=== PATIENT | male | born 1960 | race African-American/Black ===

== ENCOUNTER 2018-12-20 10:06 | Inpatient (IN) | payer OTHER ==
[2018-12-20 10:46] VITALS: BMI 24.7
--- NOTE | 2018-12-20 11:54 | HP ---
CIWA Score Nausea/Vomitin Muscle Tremors: 2 Anxiety: 2 Agitation: 2 Paroxysmal Sweats: 1-Minimal Palms Moist Orientation: 0-Oriented Tacttile Disturbances: 1-Very Mild Itch/Numbness Auditory Disturbances: 1-Very Mild Visual Disturbances: 0-None Headache: 2-Mild CIWA-Ar Total Score: 13 - Admission Criteria [facility]ASAS Guidelines: Admission for Medically Managed Detox: Requires at least one of the followin. CIWA greater than 12 2. Seizures within the past 24 hours 3. Delirium tremens within the past 24 hours 4. Hallucinations within the past 24 hours 5. Acute intervention needed for co occurring medical disorder 6. Acute intervention needed for co occurring psychiatric disorder 7. Severe withdrawal that cannot be handled at a lower level of care (continued vomiting, continued diarrhea, abnormal vital signs) requiring intravenous medication and/or fluids 8. Admission ROS BHS - HPI Chief Complaint: i need help to stop drinking alcohol,cocaine Allergies/Adverse Reactions: Allergies Allergy/AdvReac Type Severity Reaction Status Date / Time No Known Allergies Allergy Verified 12/20/18 10:40 History of Present Illness: this 58 years old male with alcohol ND COCAINE DEPENDENCE,SEEKING DETOX, WITHDRAWAL SYMPTOM, syncope alcohol related multiple admissions in detox,last detox [facility] 11/22 no seizure in the past nicotine dependence 5 cigarette/day,do not want nicotine replacement asthma on albuterol inhaler no significant period of sobreity plan for rehab after detox Exam Limitations: No Limitations - Ebola screening Have you traveled outside of the country in the last 21 days: No (N) Have you had contact with anyone from an Ebola affected area: No Do you have a fever: No - Review of Systems Constitutional: Loss of Appetite, Malaise, Night Sweats, Changes in sleep, Weakness EENT: reports: Nose Congestion Respiratory: reports: No Symptoms reported, Other (asthma) Cardiac: reports: No Symptoms Reported GI: reports: Diarrhea, Nausea, Vomiting, Abdominal cramping : reports: No Symptoms Reported Musculoskeletal: reports: Back Pain, Muscle Pain Integumentary: reports: Dryness Neuro: reports: Headache, Tremors Endocrine: reports: No Symptoms Reported Hematology: reports: No Symptoms Reported Psychiatric: reports: No Sypmtoms Reported, Judgement Intact, Mood/Affect Appropiate, Orientated x3 Patient History - Patient Medical History Hx Anemia: No Hx Asthma: No Hx Chronic Obstructive Pulmonary Disease (COPD): No Hx Cancer: No Hx Cardiac Disorders: No Hx Congestive Heart Failure: No Hx Hypertension: No Hx Hypercholesterolemia: No Hx Pacemaker: No HX Cerebrovascular Accident: No Hx Seizures: No Hx Dementia: No Hx Diabetes: No Hx Gastrointestinal Disorders: No Hx Liver Disease: No Hx Genitourinary Disorders: No Hx Sexually Transmitted Disorders: No Hx Renal Disease (ESRD): No Hx Thyroid Disease: No Hx Human Immunodeficiency Virus (HIV): No (2017 last negative) Hx Hepatitis C: No Hx Depression: No Hx Suicide Attempt: No Hx Bipolar Disorder: No Hx Schizophrenia: No Other Medical History: no suicidal,no homicidal - Patient Surgical History Past Surgical History: Yes Other Surgical History: deviated nasal septum in 1989 - PPD History Previous Implant?: Yes Documented Results: Positive w/o proof PPD to be Administered?: No - Smoking Cessation Smoking history: Current every day smoker Have you smoked in the past 12 months: Yes Hx Chewing Tobacco Use: No Initiated information on smoking cessation: Yes 'Breaking Loose' booklet given: 12/20/18 - Substance & Tx. History Hx Alcohol Use: Yes Hx Substance Use: Yes Substance Use Type: Alcohol, Cocaine Hx Substance Use Treatment: Yes ([facility] 11/22) - Substances abused Alcohol Substance route: Oral Frequency: Daily Amount used: 6pack beer, 1 pints of vodka, 1 pint wine Age of first use: 18 Date of last use: 12/20/18 Crack Substance route: Smoking Frequency: 3-6 times per week Amount used: 5-6 bags Age of first use: 22 Date of last use: 12/18/18 PCP Substance route: Smoking Frequency: 1-2 times per week Amount used: 2 bags Age of first use: 18 Date of last use: 12/17/18 Family Disease History - Family Disease History Family History: Denies Admission Physical Exam BHS - Vital Signs Vital Signs: Vital Signs - 24 hr 12/20/18 10:32 Temperature 97.8 F Pulse Rate 82 Respiratory 17 Rate Blood Pressure 161/100 - Physical General Appearance: Yes: Moderate Distress, Tremorous, Irritable, Sweating, Anxious HEENTM: Yes: Normal ENT Inspection, DAYLIN, Pharynx Normal, Tm's normal, Other ( contact dermatitis of facial area) Respiratory: Yes: Lungs Clear, Normal Breath Sounds, No Respiratory Distress Neck: Yes: Within Normal Limits, Supple, Trachea in good position Breast: Yes: Within Normal Limits Cardiology: Yes: Within Normal Limits, Regular Rhythm, Regular Rate, S1, S2 Abdominal: Yes: Normal Bowel Sounds, Non Tender, Flat, Soft, Organomegaly Genitourinary: Yes: Within Normal Limits Back: Yes: Muscle Spasm Musculoskeletal: Yes: Back pain, Muscle Pain Extremities: Yes: Tremors Neurological: Yes: editor managing newspaper II-XII NML intact, Fully Oriented, Alert, Motor Strength 5/5 Integumentary: Yes: Dry Lymphatic: Yes: Within Normal Limits - Diagnostic (1) Alcohol dependence with uncomplicated withdrawal Status: Acute (2) Cocaine dependence Status: Acute (3) Cannabis dependence Status: Acute (4) Nicotine dependence Status: Acute Qualifiers: Nicotine product type: cigarettes Substance use status: in withdrawal Qualified Code(s): F17.213 - Nicotine dependence, cigarettes, with withdrawal (5) Contact dermatitis Status: Acute (6) Asthma Status: Chronic Qualifiers: Asthma severity: mild Asthma persistence: intermittent Asthma complication type: with status asthmaticus Qualified Code(s): J45.22 - Mild intermittent asthma with status asthmaticus Cleared for Admission S - Detox or Rehab [facility] Level of Care: Medically Managed Detox Regimen/Protocol: Librium Breathalyzer - Breathalyzer Breathalyzer: 0.03 Urine Drug Screen - Test Device Lot number: [id number] Expiration date: 10/03/20 - Control Is test valid?: Yes - Results Drug screen NEGATIVE: No Urine drug screen results: SUKH-Cocaine, BZO-Benzodiazepines Inpatient Rehab Admission - Rehab Decision to Admit Inpatient rehab admission?: No
[2018-12-20] MEDS ORDERED: MAG HYDROX/AL HYDROX/SIMETH 30 ML UNIT-DOSE CUP PO PRN (12:05)
[2018-12-20] MEDS ORDERED: IBUPROFEN 400 MG TABLET (FP) PO PRN (12:05)
[2018-12-20] MEDS ORDERED: MAGNESIUM CITRATE 300 ML BOTTLE PO PRN (12:05)
[2018-12-20] MEDS ORDERED: MENTHOL/PHENOL 1 EACH UD MM PRN (12:05)
[2018-12-20] MEDS ORDERED: BISMUTH SUBSALICYLATE 262 MG/15 ML BTL PO PRN (12:05)
[2018-12-20] MEDS ORDERED: ACETAMINOPHEN 325 MG TABLET (FP) PO PRN ×2 (12:05)
[2018-12-20] MEDS ORDERED: chlordiazePOXIDE HCL 25 MG CAPSULE PO PRN (12:05)
[2018-12-20] MEDS ORDERED: hydrOXYzine HCL 25 MG TABLET (FP) PO PRN (12:05)
[2018-12-20] MEDS ORDERED: METHOCARBAMOL 500 MG TABLET PO PRN (12:05)
[2018-12-20] MEDS ORDERED: MAGNESIUM HYDROX 2400MG/30ML ORAL SUSPENSION 30 ML CUP PO PRN (12:05)
--- NOTE | 2018-12-20 14:09 | EKG ---
Test Reason : Blood Pressure : / mmHG Vent. Rate : 076 BPM Atrial Rate : 076 BPM P-R Int : 158 ms QRS Dur : 108 ms QT Int : 382 ms P-R-T Axes : 070 -57 032 degrees QTc Int : 429 ms NORMAL SINUS RHYTHM LEFT ANTERIOR FASCICULAR BLOCK ABNORMAL ECG NO PREVIOUS ECGS AVAILABLE Confirmed by HOLLIS ZHONG MD ([id number]) on 12/20/2018 2:08:51 PM Referred By: Confirmed By:HOLLIS ZHONG MD
[2018-12-20 14:20] LABS: HEMATOCRIT 47.3 % (35.4-49); HEMOGLOBIN 15.7 GM/dL (11.7-16.9); MCH 31.8 pg (25.7-33.7); MCHC 33.2 g/dl (32.0-35.9); MEAN CELL VOLUME 95.9 fl (80-96); PLATELET COUNT 216 K/MM3 (134-434); RBC 4.93 M/mm3 (4.00-5.60); RDW 13.6 % (11.9-15.9); WHITE BLOOD COUNT 5.7 K/mm3 (4.0-10.0)
[2018-12-20 14:31] LABS: ALBUMIN 3.8 g/dl (3.4-5.0); BILIRUBIN,TOTAL 0.6 mg/dL (0.2-1); BLOOD UREA NITROGEN 12.3 mg/dL (7-18); CALCIUM 8.5 mg/dL (8.5-10.1); POTASSIUM 3.5 mmol/L (3.5-5.1); TOT PROT 6.9 g/dl (6.4-8.2)
[2018-12-20] MEDS: cloNIDine HCL 0.1 MG TABLET PO PRN ×2 (15:20→22:53)
[2018-12-20] MEDS: amLODIPine BESYLATE 10 MG TABLET (FP) PO SCH (15:20)
[2018-12-20] MEDS: chlordiazePOXIDE HCL 25 MG CAPSULE PO SCH ×2 (18:53→22:48)
[2018-12-20] MEDS: THIAMINE HCL 100 MG TABLET (FP) PO SCH (22:48)
[2018-12-21] MEDS: chlordiazePOXIDE HCL 25 MG CAPSULE PO SCH ×4 (06:24→22:42)
[2018-12-21] MEDS: PRENATAL VITAMINS W/ FOLIC ACID TABLET (FP) PO SCH (10:24)
[2018-12-21] MEDS: amLODIPine BESYLATE 10 MG TABLET (FP) PO SCH (10:25)
--- NOTE | 2018-12-21 11:47 | PN ---
[facility] CIWA - CIWA Score Nausea/Vomitin-Mild Nausea/No Vomiting Muscle Tremors: 4-Moderate,w/Arms Extend Anxiety: 3 Agitation: 2 Paroxysmal Sweats: 1-Minimal Palms Moist Orientation: 0-Oriented Tacttile Disturbances: 1-Very Mild Itch/Numbness Auditory Disturbances: 0-None Visual Disturbances: 0-None Headache: 0-None Present CIWA-Ar Total Score: 12 BHS Progress Note (SOAP) Subjective: 58 years old male admitted on 12/20/18 for alcohol withdrawal sx managment feeling better today no headache today mild nausea able to tolerate food and fluid well Objective: 12/21/18 11:48 Vital Signs Temperature 97.6 F 12/21/18 09:13 Pulse Rate 72 12/21/18 09:13 Respiratory Rate 18 12/21/18 09:13 Blood Pressure 113/78 12/21/18 09:13 O2 Sat by Pulse Oximetry (%) Laboratory Last Values WBC 5.7 K/mm3 (4.0-10.0) 12/20/18 12:00 RBC 4.93 M/mm3 (4.00-5.60) 12/20/18 12:00 Hgb 15.7 GM/dL (11.7-16.9) 12/20/18 12:00 Hct 47.3 % (35.4-49) 12/20/18 12:00 MCV 95.9 fl (80-96) 12/20/18 12:00 MCH 31.8 pg (25.7-33.7) 12/20/18 12:00 MCHC 33.2 g/dl (32.0-35.9) 12/20/18 12:00 RDW 13.6 % (11.9-15.9) 12/20/18 12:00 Plt Count 216 K/MM3 (134-434) 12/20/18 12:00 MPV 10.0 fl (7.5-11.1) 12/20/18 12:00 Sodium 144 mmol/L (136-145) 12/20/18 12:00 Potassium 3.5 mmol/L (3.5-5.1) 12/20/18 12:00 Chloride 105 mmol/L (98-107) 12/20/18 12:00 Carbon Dioxide 32 mmol/L (21-32) 12/20/18 12:00 Anion Gap 6 MMOL/L (8-16) L 12/20/18 12:00 BUN 12.3 mg/dL (7-18) 12/20/18 12:00 Creatinine 1.0 mg/dL (0.55-1.3) 12/20/18 12:00 Est GFR (CKD-EPI)AfAm 96.40 12/20/18 12:00 Est GFR (CKD-EPI)NonAf 83.18 12/20/18 12:00 Random Glucose 89 mg/dL (74-106) 12/20/18 12:00 Calcium 8.5 mg/dL (8.5-10.1) 12/20/18 12:00 Total Bilirubin 0.6 mg/dL (0.2-1) 12/20/18 12:00 AST 15 U/L (15-37) 12/20/18 12:00 ALT 19 U/L (13-61) 12/20/18 12:00 Alkaline Phosphatase 68 U/L (45-117) 12/20/18 12:00 Total Protein 6.9 g/dl (6.4-8.2) 12/20/18 12:00 Albumin 3.8 g/dl (3.4-5.0) 12/20/18 12:00 RPR Titer Nonreactive (NONREACTIVE) 12/20/18 12:00 HIV 1&2 Antibody Screen Negative 12/20/18 12:00 HIV P24 Antigen Negative 12/20/18 12:00 lab noted Assessment: 12/21/18 11:48 alcohol withdrawal sx Plan: continue alcohol detox
[2018-12-21] MEDS: ALBUTEROL SO4 8 GM HFA INHALER IH PRN (17:51)
[2018-12-21] MEDS: THIAMINE HCL 100 MG TABLET (FP) PO SCH (22:42)
[2018-12-22] MEDS: chlordiazePOXIDE HCL 25 MG CAPSULE PO SCH ×4 (05:35→22:17)
[2018-12-22] MEDS: amLODIPine BESYLATE 10 MG TABLET (FP) PO SCH (10:14)
[2018-12-22] MEDS: PRENATAL VITAMINS W/ FOLIC ACID TABLET (FP) PO SCH (10:14)
[2018-12-22] MEDS: ALBUTEROL SO4 8 GM HFA INHALER IH PRN (15:07)
--- NOTE | 2018-12-22 15:44 | PN ---
S CIWA - CIWA Score Nausea/Vomitin-No Nausea/No Vomiting Muscle Tremors: 3 Anxiety: 2 Agitation: 0-Normal Activity Paroxysmal Sweats: No Perspiration Orientation: 2-Disoriented Date<2 days Tacttile Disturbances: 2-Mild Itch/Numbness/Burn Auditory Disturbances: 0-None Visual Disturbances: 2-Mild Sensitivity Headache: 0-None Present CIWA-Ar Total Score: 11 BHS Progress Note (SOAP) Subjective: Anxious, Tremors, Fatigue. Objective: PATIENT A & O X 2 (UNCERTAIN ABOUT CURRENT DAY / DATE). IN NO ACUTE DISTRESS. 12/22/18 15:43 Vital Signs Temperature 97.8 F 12/22/18 13:54 Pulse Rate 88 12/22/18 13:54 Respiratory Rate 16 12/22/18 13:54 Blood Pressure 126/89 12/22/18 13:54 O2 Sat by Pulse Oximetry (%) Laboratory Tests 12/20/18 12/20/18 12/20/18 12:00 12:00 12:00 WBC 5.7 RBC 4.93 Hgb 15.7 Hct 47.3 MCV 95.9 MCH 31.8 MCHC 33.2 RDW 13.6 Plt Count 216 MPV 10.0 Sodium 144 Potassium 3.5 Chloride 105 Carbon Dioxide 32 Anion Gap 6 L BUN 12.3 Creatinine 1.0 Est GFR (CKD-EPI)AfAm 96.40 Est GFR (CKD-EPI)NonAf 83.18 Random Glucose 89 Calcium 8.5 Total Bilirubin 0.6 AST 15 ALT 19 Alkaline Phosphatase 68 Total Protein 6.9 Albumin 3.8 RPR Titer Nonreactive HIV 1&2 Antibody Screen HIV P24 Antigen 12/20/18 12:00 WBC RBC Hgb Hct MCV MCH MCHC RDW Plt Count MPV Sodium Potassium Chloride Carbon Dioxide Anion Gap BUN Creatinine Est GFR (CKD-EPI)AfAm Est GFR (CKD-EPI)NonAf Random Glucose Calcium Total Bilirubin AST ALT Alkaline Phosphatase Total Protein Albumin RPR Titer HIV 1&2 Antibody Screen Negative HIV P24 Antigen Negative LABS NOTED. Assessment: 12/22/18 15:44 WITHDRAWAL SYMPTOMS. Plan: CONTINUE DETOX.
[2018-12-22] MEDS: THIAMINE HCL 100 MG TABLET (FP) PO SCH (22:17)
[2018-12-23] MEDS ORDERED: chlordiazePOXIDE HCL 10 MG CAPSULE PO PRN
[2018-12-23] MEDS: chlordiazePOXIDE HCL 10 MG CAPSULE PO SCH ×4 (05:43→22:29)
[2018-12-23] MEDS: PRENATAL VITAMINS W/ FOLIC ACID TABLET (FP) PO SCH (10:56)
[2018-12-23] MEDS: amLODIPine BESYLATE 10 MG TABLET (FP) PO SCH (10:56)
[2018-12-23] MEDS ORDERED: ALBUTEROL SO4 2.5/IPRATROPIUM 0.5 INH SOL 3 ML VIAL.NEB. NEB PRN (12:58)
--- NOTE | 2018-12-23 18:57 | PN ---
S CIWA - CIWA Score Nausea/Vomitin-No Nausea/No Vomiting Muscle Tremors: 2 Anxiety: 2 Agitation: 1-Slight > Activity Paroxysmal Sweats: No Perspiration Orientation: 2-Disoriented Date<2 days Tacttile Disturbances: 0-None Auditory Disturbances: 1-Very Mild Visual Disturbances: 0-None Headache: 0-None Present CIWA-Ar Total Score: 8 BHS Progress Note (SOAP) Subjective: Anxious, Fatigue, Tremors. Objective: PATIENT A & O X 2 (UNCERTAIN ABOUT CURRENT DAY / DATE). IN NO ACUTE DISTRESS. 12/23/18 18:56 Vital Signs Temperature 97.2 F L 12/23/18 18:32 Pulse Rate 87 12/23/18 18:32 Respiratory Rate 16 12/23/18 18:32 Blood Pressure 127/87 12/23/18 18:32 O2 Sat by Pulse Oximetry (%) Laboratory Tests 12/20/18 12/20/18 12/20/18 12:00 12:00 12:00 WBC 5.7 RBC 4.93 Hgb 15.7 Hct 47.3 MCV 95.9 MCH 31.8 MCHC 33.2 RDW 13.6 Plt Count 216 MPV 10.0 Sodium 144 Potassium 3.5 Chloride 105 Carbon Dioxide 32 Anion Gap 6 L BUN 12.3 Creatinine 1.0 Est GFR (CKD-EPI)AfAm 96.40 Est GFR (CKD-EPI)NonAf 83.18 Random Glucose 89 Calcium 8.5 Total Bilirubin 0.6 AST 15 ALT 19 Alkaline Phosphatase 68 Total Protein 6.9 Albumin 3.8 RPR Titer Nonreactive HIV 1&2 Antibody Screen HIV P24 Antigen 12/20/18 12:00 WBC RBC Hgb Hct MCV MCH MCHC RDW Plt Count MPV Sodium Potassium Chloride Carbon Dioxide Anion Gap BUN Creatinine Est GFR (CKD-EPI)AfAm Est GFR (CKD-EPI)NonAf Random Glucose Calcium Total Bilirubin AST ALT Alkaline Phosphatase Total Protein Albumin RPR Titer HIV 1&2 Antibody Screen Negative HIV P24 Antigen Negative LABS NOTED. Assessment: 12/23/18 18:57 WITHDRAWAL SYMPTOMS. Plan: CONTINUE DETOX.
[2018-12-23] MEDS: ALBUTEROL SO4 8 GM HFA INHALER IH PRN (22:29)
[2018-12-23] MEDS: THIAMINE HCL 100 MG TABLET (FP) PO SCH (22:29)
[2018-12-23] MEDS: MELATONIN 5 MG TABLETS PO PRN (22:31)
[2018-12-24] MEDS: chlordiazePOXIDE HCL 10 MG CAPSULE PO SCH ×2 (05:57→17:23)
[2018-12-24] MEDS: amLODIPine BESYLATE 10 MG TABLET (FP) PO SCH (10:32)
[2018-12-24] MEDS: PRENATAL VITAMINS W/ FOLIC ACID TABLET (FP) PO SCH (10:32)
--- NOTE | 2018-12-24 15:50 | PN ---
S CIWA - CIWA Score Nausea/Vomitin-No Nausea/No Vomiting Muscle Tremors: 2 Anxiety: 2 Agitation: 2 Paroxysmal Sweats: No Perspiration Orientation: 0-Oriented Tacttile Disturbances: 0-None Auditory Disturbances: 0-None Visual Disturbances: 0-None Headache: 0-None Present CIWA-Ar Total Score: 6 BHS Progress Note (SOAP) Subjective: doing well with librium detox regimen mild tremor otherwise feeling ok less sweat sleep better at night Objective: 12/24/18 15:51 Vital Signs Temperature 97.3 F L 12/24/18 13:18 Pulse Rate 86 12/24/18 13:18 Respiratory Rate 18 12/24/18 13:18 Blood Pressure 130/83 12/24/18 13:18 O2 Sat by Pulse Oximetry (%) Laboratory Last Values WBC 5.7 K/mm3 (4.0-10.0) 12/20/18 12:00 RBC 4.93 M/mm3 (4.00-5.60) 12/20/18 12:00 Hgb 15.7 GM/dL (11.7-16.9) 12/20/18 12:00 Hct 47.3 % (35.4-49) 12/20/18 12:00 MCV 95.9 fl (80-96) 12/20/18 12:00 MCH 31.8 pg (25.7-33.7) 12/20/18 12:00 MCHC 33.2 g/dl (32.0-35.9) 12/20/18 12:00 RDW 13.6 % (11.9-15.9) 12/20/18 12:00 Plt Count 216 K/MM3 (134-434) 12/20/18 12:00 MPV 10.0 fl (7.5-11.1) 12/20/18 12:00 Sodium 144 mmol/L (136-145) 12/20/18 12:00 Potassium 3.5 mmol/L (3.5-5.1) 12/20/18 12:00 Chloride 105 mmol/L (98-107) 12/20/18 12:00 Carbon Dioxide 32 mmol/L (21-32) 12/20/18 12:00 Anion Gap 6 MMOL/L (8-16) L 12/20/18 12:00 BUN 12.3 mg/dL (7-18) 12/20/18 12:00 Creatinine 1.0 mg/dL (0.55-1.3) 12/20/18 12:00 Est GFR (CKD-EPI)AfAm 96.40 12/20/18 12:00 Est GFR (CKD-EPI)NonAf 83.18 12/20/18 12:00 Random Glucose 89 mg/dL (74-106) 12/20/18 12:00 Calcium 8.5 mg/dL (8.5-10.1) 12/20/18 12:00 Total Bilirubin 0.6 mg/dL (0.2-1) 12/20/18 12:00 AST 15 U/L (15-37) 12/20/18 12:00 ALT 19 U/L (13-61) 12/20/18 12:00 Alkaline Phosphatase 68 U/L (45-117) 12/20/18 12:00 Total Protein 6.9 g/dl (6.4-8.2) 12/20/18 12:00 Albumin 3.8 g/dl (3.4-5.0) 12/20/18 12:00 RPR Titer Nonreactive (NONREACTIVE) 12/20/18 12:00 HIV 1&2 Antibody Screen Negative 12/20/18 12:00 HIV P24 Antigen Negative 12/20/18 12:00 lab noted Assessment: 12/24/18 15:52 alcohol withdrawal sx Plan: continue alcohol detox
[2018-12-24] MEDS: ALBUTEROL SO4 8 GM HFA INHALER IH PRN ×2 (17:25→22:22)
[2018-12-24] MEDS: THIAMINE HCL 100 MG TABLET (FP) PO SCH (22:21)
[2018-12-24] MEDS: MELATONIN 5 MG TABLETS PO PRN (22:22)
[2018-12-25] MEDS ORDERED: chlordiazePOXIDE HCL 10 MG CAPSULE PO ONE (05:00)
[2018-12-25] MEDS: ALBUTEROL SO4 8 GM HFA INHALER IH PRN ×2 (06:02→10:25)
--- NOTE | 2018-12-25 09:59 | DS ---
[facility] Detox Discharge Summary Admission Date: 12/20/18 Discharge Date: 12/25/18 - History Present History: Alcohol Dependence Additional Comments: 58 years old male admitted on 12/20/18 for acute alcohol withdrawal sx management doing well with librium detox regimen throughout the detox saty no complication patient is alert oriented x 3 no headache no shortness of breath steady gait denies nausea denies diarrhea aftercare [facility] alcohol rehab - Physical Exam Results Vital Signs: Vital Signs Temperature 96.8 F L 12/25/18 07:49 Pulse Rate 85 12/25/18 07:49 Respiratory Rate 18 12/25/18 07:49 Blood Pressure 109/80 12/25/18 07:49 O2 Sat by Pulse Oximetry (%) Laboratory Last Values WBC 5.7 K/mm3 (4.0-10.0) 12/20/18 12:00 RBC 4.93 M/mm3 (4.00-5.60) 12/20/18 12:00 Hgb 15.7 GM/dL (11.7-16.9) 12/20/18 12:00 Hct 47.3 % (35.4-49) 12/20/18 12:00 MCV 95.9 fl (80-96) 12/20/18 12:00 MCH 31.8 pg (25.7-33.7) 12/20/18 12:00 MCHC 33.2 g/dl (32.0-35.9) 12/20/18 12:00 RDW 13.6 % (11.9-15.9) 12/20/18 12:00 Plt Count 216 K/MM3 (134-434) 12/20/18 12:00 MPV 10.0 fl (7.5-11.1) 12/20/18 12:00 Sodium 144 mmol/L (136-145) 12/20/18 12:00 Potassium 3.5 mmol/L (3.5-5.1) 12/20/18 12:00 Chloride 105 mmol/L (98-107) 12/20/18 12:00 Carbon Dioxide 32 mmol/L (21-32) 12/20/18 12:00 Anion Gap 6 MMOL/L (8-16) L 12/20/18 12:00 BUN 12.3 mg/dL (7-18) 12/20/18 12:00 Creatinine 1.0 mg/dL (0.55-1.3) 12/20/18 12:00 Est GFR (CKD-EPI)AfAm 96.40 12/20/18 12:00 Est GFR (CKD-EPI)NonAf 83.18 12/20/18 12:00 Random Glucose 89 mg/dL (74-106) 12/20/18 12:00 Calcium 8.5 mg/dL (8.5-10.1) 12/20/18 12:00 Total Bilirubin 0.6 mg/dL (0.2-1) 12/20/18 12:00 AST 15 U/L (15-37) 12/20/18 12:00 ALT 19 U/L (13-61) 12/20/18 12:00 Alkaline Phosphatase 68 U/L (45-117) 12/20/18 12:00 Total Protein 6.9 g/dl (6.4-8.2) 12/20/18 12:00 Albumin 3.8 g/dl (3.4-5.0) 12/20/18 12:00 RPR Titer Nonreactive (NONREACTIVE) 12/20/18 12:00 HIV 1&2 Antibody Screen Negative 12/20/18 12:00 HIV P24 Antigen Negative 12/20/18 12:00 lab noted Pertinent Admission Physical Exam Findings: alcohol withdrawal sx Laboratory Last Values WBC 5.7 K/mm3 (4.0-10.0) 12/20/18 12:00 RBC 4.93 M/mm3 (4.00-5.60) 12/20/18 12:00 Hgb 15.7 GM/dL (11.7-16.9) 12/20/18 12:00 Hct 47.3 % (35.4-49) 12/20/18 12:00 MCV 95.9 fl (80-96) 12/20/18 12:00 MCH 31.8 pg (25.7-33.7) 12/20/18 12:00 MCHC 33.2 g/dl (32.0-35.9) 12/20/18 12:00 RDW 13.6 % (11.9-15.9) 12/20/18 12:00 Plt Count 216 K/MM3 (134-434) 12/20/18 12:00 MPV 10.0 fl (7.5-11.1) 12/20/18 12:00 Sodium 144 mmol/L (136-145) 12/20/18 12:00 Potassium 3.5 mmol/L (3.5-5.1) 12/20/18 12:00 Chloride 105 mmol/L (98-107) 12/20/18 12:00 Carbon Dioxide 32 mmol/L (21-32) 12/20/18 12:00 Anion Gap 6 MMOL/L (8-16) L 12/20/18 12:00 BUN 12.3 mg/dL (7-18) 12/20/18 12:00 Creatinine 1.0 mg/dL (0.55-1.3) 12/20/18 12:00 Est GFR (CKD-EPI)AfAm 96.40 12/20/18 12:00 Est GFR (CKD-EPI)NonAf 83.18 12/20/18 12:00 Random Glucose 89 mg/dL (74-106) 12/20/18 12:00 Calcium 8.5 mg/dL (8.5-10.1) 12/20/18 12:00 Total Bilirubin 0.6 mg/dL (0.2-1) 12/20/18 12:00 AST 15 U/L (15-37) 12/20/18 12:00 ALT 19 U/L (13-61) 12/20/18 12:00 Alkaline Phosphatase 68 U/L (45-117) 12/20/18 12:00 Total Protein 6.9 g/dl (6.4-8.2) 12/20/18 12:00 Albumin 3.8 g/dl (3.4-5.0) 12/20/18 12:00 RPR Titer Nonreactive (NONREACTIVE) 12/20/18 12:00 HIV 1&2 Antibody Screen Negative 12/20/18 12:00 HIV P24 Antigen Negative 12/20/18 12:00 - Treatment Hospital Course: Detox Protocol Followed, Detoxed Safely, Responded well, Discharged Condition Good, Rehab Referral Accepted Patient has Accepted a Rehab Referral to: [place] [facility] - Medication Discharge Medications: Ambulatory Orders Albuterol Sulfate Inhaler - [Ventolin HFA Inhaler -] 2 inh PO Q4H PRN #1 inhaler 12/24/18 Amlodipine Besylate [Norvasc -] 10 mg PO DAILY #14 tablet 12/24/18 - Diagnosis (1) Hypertension Current Visit: Yes Status: Chronic Qualifiers: Hypertension type: essential hypertension Qualified Code(s): I10 - Essential (primary) hypertension (2) Alcohol dependence with uncomplicated withdrawal Current Visit: Yes Status: Acute (3) Asthma Current Visit: Yes Status: Chronic Qualifiers: Asthma severity: mild Asthma persistence: intermittent Asthma complication type: with status asthmaticus Qualified Code(s): J45.22 - Mild intermittent asthma with status asthmaticus (4) Nicotine dependence Current Visit: Yes Status: Acute Qualifiers: Nicotine product type: cigarettes Substance use status: in withdrawal Qualified Code(s): F17.213 - Nicotine dependence, cigarettes, with withdrawal - AMA Did Patient Leave Against Medical Advice: No
[2018-12-25 10:07] VITALS: BP 129/89; PULSE 97; TEMP 97.9
[2018-12-25] MEDS: PRENATAL VITAMINS W/ FOLIC ACID TABLET (FP) PO SCH (10:25)
[2018-12-25] MEDS: amLODIPine BESYLATE 10 MG TABLET (FP) PO SCH (10:25)
== END 2018-12-25 11:25 | disposition home or self-care (01) | DRG 774 ==
LOC: YASAS 10:06 → Y3N 12:01
PROVIDERS: ADMIT Surgery; ATTEND Surgery
PROC: HZ2ZZZZ Detoxification Services for Substance Abuse Treatment (ICD-10-PCS; principal; 2018-12-20)
DX: F10.230 Alcohol dependence with withdrawal, uncomplicated (principal); F14.20 Cocaine dependence, uncomplicated; F12.20 Cannabis dependence, uncomplicated; F17.213 Nicotine dependence, cigarettes, with withdrawal; I10 Essential (primary) hypertension; J45.22 Mild intermittent asthma with status asthmaticus; L30.9 Dermatitis, unspecified
CPT/HCPCS: 36415; 71046-TC-FY; 80053; 85027; 86593; 87389; 93005; 93010; J0735

== ENCOUNTER 2021-03-03 15:42 | Inpatient (IN) | payer BC, OTHER ==
[2021-03-03 19:11] VITALS: BMI 26.6
[2021-03-03] MEDS ORDERED: NICOTINE POLACRILEX 2 MG GUM BUC PRN (20:25)
[2021-03-03] MEDS ORDERED: MAG HYDROX/AL HYDROX/SIMETH 30 ML UNIT-DOSE CUP PO PRN (20:25)
[2021-03-03] MEDS ORDERED: BISMUTH SUBSALICYLATE 524 MG/30 ML PO PRN (20:25)
[2021-03-03] MEDS ORDERED: MAGNESIUM HYDROX 2400MG/30ML ORAL SUSPENSION 30 ML CUP PO PRN (20:25)
[2021-03-03] MEDS ORDERED: ACETAMINOPHEN 325 MG TABLET (FP) PO PRN ×2 (20:25)
[2021-03-03] MEDS ORDERED: MAGNESIUM CITRATE 300 ML BOTTLE PO PRN (20:25)
[2021-03-03] MEDS ORDERED: METHOCARBAMOL 500 MG TABLET PO PRN (20:25)
[2021-03-03] MEDS ORDERED: IBUPROFEN 400 MG TABLET (FP) PO PRN (20:25)
[2021-03-03] MEDS ORDERED: MENTHOL/PHENOL 1 EACH UD MM PRN (20:25)
[2021-03-03] MEDS ORDERED: ONDANSETRON *ODT* 4 MG TABLET SL PRN (20:25)
[2021-03-03] MEDS ORDERED: diazePAM 5 MG TABLET PO PRN (20:29)
[2021-03-04] MEDS: MELATONIN 5 MG TABLETS PO SCH ×2 (01:00→22:24)
[2021-03-04] MEDS: diazePAM 5 MG TABLET PO SCH ×5 (01:00→22:25)
[2021-03-04] MEDS: THIAMINE HCL 100 MG TABLET (FP) PO SCH ×2 (01:03→22:24)
[2021-03-04] MEDS: amLODIPine BESYLATE 10 MG TABLET (FP) PO SCH (10:28)
[2021-03-04] MEDS: PRENATAL VITAMINS W/ FOLIC ACID TABLET (FP) PO SCH (10:28)
[2021-03-04] MEDS: NICOTINE 14 MG/24 HOURS TOPICAL PATCH TD SCH (10:28)
[2021-03-04 10:42] LABS: HEMATOCRIT 44.7 % (35.4-49); MCH 30.4 pg (25.7-33.7); MCHC 33.6 g/dl (32.0-35.9); MEAN CELL VOLUME 90.6 fl (80-96); PLATELET COUNT 200 10^3/uL (134-434); RBC 4.94 M/mm3 (4.00-5.60); RDW 13.9 % (11.9-15.9); WHITE BLOOD COUNT 7.7 K/mm3 (4.0-10.0)
[2021-03-04 10:55] LABS: ALBUMIN 3.7 g/dl (3.4-5.0); CALCIUM 8.6 mg/dL (8.5-10.1)
[2021-03-04 10:56] LABS: BLOOD UREA NITROGEN 19.2 mg/dL (7-18)
[2021-03-04 10:59] LABS: BILIRUBIN,TOTAL 0.9 mg/dL (0.2-1); CREATININE 1.3 mg/dL (0.55-1.3)
[2021-03-04 11:00] LABS: TOT PROT 6.8 g/dl (6.4-8.2)
[2021-03-05] MEDS: diazePAM 5 MG TABLET PO SCH ×3 (05:55→22:10)
[2021-03-05 08:11] LABS: BLOOD UREA NITROGEN 21.1 mg/dL (7-18); CALCIUM 8.1 mg/dL (8.5-10.1)
[2021-03-05 08:15] LABS: CREATININE 1.1 mg/dL (0.55-1.3)
[2021-03-05] MEDS: PRENATAL VITAMINS W/ FOLIC ACID TABLET (FP) PO SCH (10:28)
[2021-03-05] MEDS: NICOTINE 14 MG/24 HOURS TOPICAL PATCH TD SCH (10:28)
[2021-03-05] MEDS: amLODIPine BESYLATE 10 MG TABLET (FP) PO SCH (10:29)
[2021-03-05] MEDS: ALBUTEROL SO4 HFA INHALER IH PRN (10:30)
[2021-03-05] MEDS: THIAMINE HCL 100 MG TABLET (FP) PO SCH (22:10)
[2021-03-05] MEDS: MELATONIN 5 MG TABLETS PO SCH (22:10)
[2021-03-06] MEDS: diazePAM 5 MG TABLET PO SCH ×2 (05:35→17:28)
[2021-03-06] MEDS: ALBUTEROL SO4 HFA INHALER IH PRN ×2 (05:36→21:45)
[2021-03-06] MEDS: PRENATAL VITAMINS W/ FOLIC ACID TABLET (FP) PO SCH (10:22)
[2021-03-06] MEDS: amLODIPine BESYLATE 10 MG TABLET (FP) PO SCH (10:22)
[2021-03-06] MEDS: NICOTINE 14 MG/24 HOURS TOPICAL PATCH TD SCH (10:22)
[2021-03-06] MEDS: MELATONIN 5 MG TABLETS PO SCH (21:43)
[2021-03-06] MEDS: THIAMINE HCL 100 MG TABLET (FP) PO SCH (21:44)
[2021-03-07] MEDS ORDERED: diazePAM 5 MG TABLET PO ONE (06:00)
[2021-03-07] MEDS: ALBUTEROL SO4 HFA INHALER IH PRN (06:57)
[2021-03-07 09:20] VITALS: BP 133/88; PULSE 88; TEMP 96.9
== END 2021-03-07 09:18 | disposition home or self-care (01) | DRG 897 ==
LOC: YASAS 15:42 → Y3N 21:55
PROVIDERS: ADMIT Allergy & Immunology; ATTEND Allergy & Immunology
PROC: HZ2ZZZZ Detoxification Services for Substance Abuse Treatment (ICD-10-PCS; principal; 2021-03-03)
DX: F10.230 Alcohol dependence with withdrawal, uncomplicated (principal); F14.20 Cocaine dependence, uncomplicated; F17.210 Nicotine dependence, cigarettes, uncomplicated; F19.24 Other psychoactive substance dependence with psychoactive substance-induced mood disorder; F32.9 Major depressive disorder, single episode, unspecified; F41.9 Anxiety disorder, unspecified; J44.9 Chronic obstructive pulmonary disease, unspecified; J45.20 Mild intermittent asthma, uncomplicated; Z86.11 Personal history of tuberculosis
CPT/HCPCS: 36415; 71046-TC-FY; 80048; 80053; 85027; 86780; C9803; U0003; U0005

== ENCOUNTER 2023-11-11 09:25 | Inpatient (IN) | payer OTHER ==
[2023-11-11 10:50] VITALS: BMI 27.8
[2023-11-11] MEDS ORDERED: BENZONATATE 200 MG CAPSULE PO PRN (11:32)
[2023-11-11] MEDS ORDERED: guaiFENesin 600 MG TABLET.ER (FP) PO PRN (11:32)
[2023-11-11] MEDS ORDERED: DICYCLOMINE HCL 10 MG CAPSULE PO PRN (11:32)
[2023-11-11] MEDS ORDERED: NALOXONE HCL 0.4 MG/ML VIAL IM PRN (11:32)
[2023-11-11] MEDS ORDERED: MAG HYDROX/AL HYDROX/SIMETH 30 ML UNIT-DOSE CUP PO PRN (11:32)
[2023-11-11] MEDS ORDERED: NALOXONE (NARCAN) HCL 4 MG/0.1 ML SPRAY NS PRN (11:32)
[2023-11-11] MEDS ORDERED: POLYETHYLENE GLYCOL (HEALTHYLAX) 3350 17 GM PACKET PO PRN (11:32)
[2023-11-11] MEDS ORDERED: ONDANSETRON *ODT* 4 MG TABLET SL PRN (11:32)
[2023-11-11] MEDS ORDERED: IBUPROFEN 400 MG TABLET (FP) PO PRN (11:32)
[2023-11-11] MEDS ORDERED: LOPERAMIDE HCL 2 MG CAPSULE PO PRN (11:32)
[2023-11-11] MEDS ORDERED: BENZOCAINE/MENTHOL (CHLORASEPTIC ) LOZENGE MM PRN (11:32)
[2023-11-11] MEDS ORDERED: MAGNESIUM HYDROX 2400MG/30ML ORAL SUSPENSION 30 ML CUP PO PRN (11:32)
[2023-11-11] MEDS ORDERED: BISMUTH SUBSALICYLATE 262 MG/15 ML BTL PO PRN (11:32)
[2023-11-11] MEDS ORDERED: ACETAMINOPHEN 325 MG TABLET (FP) PO PRN (11:32)
[2023-11-11] MEDS ORDERED: IBUPROFEN 600 MG TABLET (FP) PO PRN (11:32)
[2023-11-11] MEDS ORDERED: METHOCARBAMOL 500 MG TABLET PO PRN (11:32)
[2023-11-11] MEDS ORDERED: chlordiazePOXIDE HCL 25 MG CAPSULE ONE (12:58)
[2023-11-11] MEDS ORDERED: PRENATAL VITAMINS W/ FOLIC ACID TABLET (FP) PO ONE (12:58)
[2023-11-11] MEDS ORDERED: NICOTINE 7 MG/24 HOURS TOPICAL PATCH TD ONE (12:58)
[2023-11-11] MEDS: NICOTINE 7 MG/24 HOURS TOPICAL PATCH TD SCH (13:00)
[2023-11-11] MEDS: PRENATAL VITAMINS W/ FOLIC ACID TABLET (FP) PO SCH (13:00)
[2023-11-11] MEDS: chlordiazePOXIDE HCL 25 MG CAPSULE PO PRN (13:01)
[2023-11-11] MEDS: chlordiazePOXIDE HCL 25 MG CAPSULE PO SCH ×2 (13:11→17:21)
[2023-11-11] MEDS: METOPROLOL TARTRATE 50 MG TABLET (FP) PO ONE (14:01)
[2023-11-11] MEDS: ASPIRIN 81 MG CHEWABLE TABLETS PO ONE (14:01)
[2023-11-11] MEDS: ACAMPROSATE CALCIUM 333 MG TABLET.DR PO SCH (14:01)
[2023-11-11] MEDS: ALBUTEROL SO4 0.083% IH SOL 2.5 MG/3 ML VIAL.NEB. NEB PRN (15:49)
[2023-11-11] MEDS: hydrOXYzine PAMOATE 25 MG CAPSULE (FP) PO PRN (17:21)
[2023-11-11] MEDS: MONTELUKAST NA 10 MG TABLET PO SCH (22:13)
[2023-11-11] MEDS: MELATONIN 5 MG TABLETS PO SCH (22:13)
[2023-11-11] MEDS: QUEtiapine FUMARATE 25 MG TABLET PO PRN (22:13)
[2023-11-11] MEDS: THIAMINE 100 MG TABLET PO SCH (22:13)
[2023-11-12] MEDS: FLUTICASONE/UMECLIDIN/VILANTER(200-62.5-25 TRELEGY ELLIPTA) INAHLER IH SCH (11:42)
[2023-11-12] MEDS: amLODIPine BESYLATE 10 MG TABLET (FP) PO SCH (11:42)
[2023-11-12] MEDS: ASPIRIN COATED 81 MG TABLET.EC PO SCH (11:42)
[2023-11-12] MEDS: FAMOTIDINE 20 MG TABLET PO SCH (11:42)
[2023-11-12 15:18] LABS: POTASSIUM 3.8 mmol/L (3.5-5.1)
[2023-11-12 15:23] LABS: HEMATOCRIT 45.6 % (35.4-49); MCH 32.2 pg (25.7-33.7); MCHC 32.9 g/dl (32.0-35.9); MEAN CELL VOLUME 97.7 fl (80-96); MEAN PLT VOLUME 9.5 fl (7.5-11.1); PLATELET COUNT 149 10^3/uL (134-434); RBC 4.67 M/mm3 (4.00-5.60); RDW 13.6 % (11.9-15.9); WHITE BLOOD COUNT 4.4 K/mm3 (4.0-10.0)
[2023-11-12 15:29] LABS: ALBUMIN 3.2 g/dl (3.4-5.0); CALCIUM 8.9 mg/dL (8.5-10.1)
[2023-11-12 15:30] LABS: BLOOD UREA NITROGEN 8.5 mg/dL (7-18)
[2023-11-12 15:33] LABS: TOT PROT 6.2 g/dl (6.4-8.2)
[2023-11-13] MEDS: chlordiazePOXIDE HCL 25 MG CAPSULE PO SCH (05:55)
[2023-11-13] MEDS: cloNIDine HCL 0.1 MG TABLET PO ONE (07:43)
[2023-11-13] MEDS: LACTULOSE 20 GM/30 ML UDC (FOR ORAL USE ONLY) PO SCH (09:48)
[2023-11-13] MEDS: INSULIN ASPART SLIDING SCALE (NOVOLOG) 1 VIAL SQ SCH (18:02)
[2023-11-14] MEDS ORDERED: chlordiazePOXIDE HCL 10 MG CAPSULE PO PRN
[2023-11-14] MEDS: chlordiazePOXIDE HCL 10 MG CAPSULE PO SCH (05:55)
[2023-11-15] MEDS: chlordiazePOXIDE HCL 10 MG CAPSULE PO SCH (05:45)
[2023-11-15 12:25] LABS: BASO % 0.7 % (0-2.0); EOS % 1.7 % (0-4.5); HEMATOCRIT 46.7 % (35.4-49); HEMOGLOBIN 15.7 GM/dL (11.7-16.9); LYMPH % 18.4 % (8-40); MCH 32.5 pg (25.7-33.7); MCHC 33.7 g/dl (32.0-35.9); MEAN CELL VOLUME 96.2 fl (80-96); MEAN PLT VOLUME 9.7 fl (7.5-11.1); MONO % 5.8 % (3.8-10.2); NEUT % 73.4 % (42.8-82.8); PLATELET COUNT 150 10^3/uL (134-434); RBC 4.85 M/mm3 (4.00-5.60); RDW 13.8 % (11.9-15.9); WHITE BLOOD COUNT 6.5 K/mm3 (4.0-10.0)
[2023-11-15 12:26] LABS: CHLORIDE 103 mmol/L (98-107); POTASSIUM 4.2 mmol/L (3.5-5.1); SODIUM 138 mmol/L (136-145)
[2023-11-15 12:28] LABS: CALCIUM 8.9 mg/dL (8.5-10.1)
[2023-11-15 12:29] LABS: ANION GAP 7 mmol/L (4-13); BLOOD UREA NITROGEN 13.1 mg/dL (7-18); CO2 29 mmol/L (21-32)
[2023-11-15 12:32] LABS: GLUCOSE,RANDOM 413 mg/dL (74-106)
[2023-11-16] MEDS: chlordiazePOXIDE HCL 10 MG CAPSULE PO ONE (05:34)
[2023-11-16] MEDS: ALBUTEROL SO4 HFA INHALER IH PRN (07:27)
[2023-11-16] MEDS: metFORMIN HCL 500 MG TABLET (FP) PO ONE (09:27)
[2023-11-16 12:13] VITALS: BP 125/85; PULSE 105; RESP 16; TEMP 98.7
== END 2023-11-16 09:37 | disposition home or self-care (01) | DRG 775 ==
LOC: YASAS 09:25 → Y3N 12:49
PROVIDERS: ADMIT Allergy & Immunology; ATTEND Surgery
PROC: HZ2ZZZZ Detoxification Services for Substance Abuse Treatment (ICD-10-PCS; principal; 2023-11-11)
DX: F10.230 Alcohol dependence with withdrawal, uncomplicated (principal); F17.210 Nicotine dependence, cigarettes, uncomplicated; F19.282 Other psychoactive substance dependence with psychoactive substance-induced sleep disorder; F19.24 Other psychoactive substance dependence with psychoactive substance-induced mood disorder; E78.5 Hyperlipidemia, unspecified; I25.10 Atherosclerotic heart disease of native coronary artery without angina pectoris; I10 Essential (primary) hypertension; L21.9 Seborrheic dermatitis, unspecified; J44.9 Chronic obstructive pulmonary disease, unspecified; J45.20 Mild intermittent asthma, uncomplicated; E11.9 Type 2 diabetes mellitus without complications; Z79.84 Long term (current) use of oral hypoglycemic drugs; R79.89 Other specified abnormal findings of blood chemistry
CPT/HCPCS: 36415; 71046-TC-FY; 80048; 80053; 80305; 80307; 82140; 82962; 83036; 85025; 85027; 86780; 93005; 93010; 94640